=== PATIENT | female | born 1975 | race Two or more races ===

== ENCOUNTER 2017-07-06 09:15 | Emergency (ER) | payer MEDICAID ==
--- NOTE | 2017-07-06 09:30 | ED Physician Chart ---
ED Chief Complaint/HPI - Patient Information Date Seen:: 07/06/17 Time Seen:: 09:30 Chief Complaint:: ASTHMA ATTACK History of Present Illness:: THIS 42 YEAR OLD FEMALE HAS HAD ASTHMA SINCE SHE CAN REMEMBER. SHE HAS HAD MULTIPLE PRIOR HOSPITALATIONS BUT HAS NEVER NEEDED INTUBATION. SHE HAD RUN OUT OF HER AZH-ALBUTEROL LAST EVENING. SHE RATES THE SEVERITY OF HER DIFFICULTY BREATHING 5/10. SHE IS POSITIVE FOR A MILD COUGH. SHE HAD NO FEVER OR CHILLS. NO CHEST PAIN. POSITIVE FOR WHEEZING. Allergies:: Allergies Allergy/AdvReac Type Severity Reaction Status Date / Time No Known Allergies Allergy Verified 07/06/17 09:22 Vitals:: Vital Signs - 8 hr 07/06/17 09:23 Temp 98.4 F HR 96 RR 16 BP 109/70 O2 Sat % 97 ED Review of Systems - Review of Systems General/Constitutional: No fever, No chills, No weight loss, No diaphoresis Skin: Skin lesions Head: No headache Eyes: No loss of vision, No diplopia ENT: No earache, No sore throat Neck: No neck pain, No swelling, No thyromegaly, No stiffness Cardio Vascular: No chest pain, No PND, No orthopnea, No edema Pulmonary: SOB, Cough, No cough, No sputum, Wheezing GI: No nausea, No vomiting, No pain, No melena, No constipation G/U: Dysuria Musculoskeletal: Bone or joint pain Endocrine: No polyuria, No polydipsia Psychiatric: No depression, No anxiety, No suicidal ideation Hematopoietic: No bruising Neurological: No syncope, No focal symptoms, No weakness, No paresthesia, No headache, No seizure, No dizziness, No confusion, No vertigo ED Past Medical History - Past Medical History Past Medical History: Other (ASTHMA) Family History: None Social History: Non Smoker, No Drug Use, Single Family Medical History - Family Member Mother Hx Family Cancer: No Hx Family Stroke: No Hx Family Diabetes: No Hx Family Seizures: No Hx Family AIDS: No Hx Family HIV: No ED Physical Exam - Physical Examination General/Constitutional: Awake, Well-developed, well-nourished, Alert, GCS 15, Non-toxic appearing Other Gen/Cons comments:: MILD RESP DISTRESS Head: Atraumatic Eyes: Lids, conjuctiva normal, PERRL, EOMI Skin: No rash, No skin lesions, No ecchymosis, Well hydrated, No lymphadenopathy ENMT: External ears, nose nl, Nasal exam nl, Lips, teeth, gums nl, Oropharynx nl , Tonsils nl Neck: Nontender, Full ROM w/o pain, No JVD, No nuchal rigidity, No bruit, No mass, No stridor Respiratory: Nl effort/Exclusion Other Respiratory comments:: PROLONGED EXPIRATORY PHASE. DIFUSE WHEEZING. NO RALES Cardio Vascular: RRR, No murmur, gallop, rubs, NL S1 S2 Other Cardio Vascular comments:: GOOD PULSES ALL 4 EXTREMITIES. GI: No tenderness/rebounding/guarding, No organomegaly, No hernia, Normal BS's, Nondistended, No mass/bruits, No McBurney tenderness Other GI comments:: RECTAL EXAM DEFERRED AT MY DISCRETION. : No CVA tenderness Extremities: No tenderness or effusion, Full ROM, normal strength in all extremities, No edema, Normal digits & nails Neuro/Psych: Alert/oriented, DTR's symmetric, Normal sensory exam, Normal motor strength, Judgement/insight normal, Mood normal, Normal gait, No focal deficits Misc: Normal back, No paraspinal tenderness ED Labs/Radiology/EKG Results - Lab Results Results: NO LAB OR RADIOLOGY STUDIES INDICATED. ED Assessment - Assessment General Assessment: CASE SUMMARY:THIS 42 YEAR OLD FEMALE HAS LONG HISTORY OF ASTHMA AND RAN OUT OF HER ALBUTEROL MDI LAST EFIR VEN. NEEDS NEW RX FOR MDI. PT RECEIVED ALBUTEROL /ASTROVENT NEBULIZED ALSO DISCHARGED WITH RX F PREDNISONE, 10 MG TO BE TAKEN A 5 DAY TAPERED COURSE.AFTER TREATMENT LUNGS WERE COMPLETELY CLEAR. D/C'D HOME WITH RX'S FOR ALBUTEROL AND PREDNISONE. MDM, DDX ACUTE RESPIRATORY DISTRESS: NOT PULMONARY EDEMA BASED ON PATIENT HISTORY AND PHYSICAL EXAM. NOT PNEUMOTHORAX BASED ON PATIENT'S HISTORY AND EXAM. NOT PULMONARY EMBOLISM BASED ON WELLS CRITERIA. NOT COPD BASED ON HISTORY AND EXAM. ED Septic Shock - . Is Septic Shock (SBP<90, OR Lactate>4 mmol\L) present?: No - <6hrs of presentation: Vital Signs: Vital Signs - 8 hr 07/06/17 09:23 Temp 98.4 F HR 96 RR 16 BP 109/70 O2 Sat % 97 ED Reassessment (Disposition) - Reassessment Reassessment Condition:: Improved - Diagnosis Diagnosis:: ACUTE ASTHMA EXACERBATION, COMPLETELY RESOLVED. - Patient Disposition Discharge/Transfer:: Home ED Discharge Plan - Patient Disposition Admit/Discharge/Transfer: PT DISCHARGED HOME Condition at Disposition: Improved Instructions: Asthma, Adult, [id number]
[2017-07-06] MEDS ORDERED: Albuterol/Ipratropium Neb 3 ML AERS HHN ONE ×2 (09:45→09:50)
== END 2017-07-06 10:08 | disposition home or self-care (01) ==
LOC: ER 09:15
DX: J45.901 Unspecified asthma with (acute) exacerbation (principal)
CPT/HCPCS: 94640; Z7502

== ENCOUNTER 2017-08-11 19:18 | Emergency (ER) | payer MEDICAID ==
--- NOTE | 2017-08-11 19:42 | ED Physician Chart ---
ED Chief Complaint/HPI - Patient Information Date Seen:: 08/11/17 Time Seen:: 19:30 Chief Complaint:: Pt is here to request a refill for albuterol inhaler. History of Present Illness:: Pt has h/o asthma since childhood. Pt has been out of her albuterol inhaler and requests to have a refill in case she needs it. Pt now breathes comfortably without dyspnea or audible wheeze. No fever. Allergies:: Allergies Allergy/AdvReac Type Severity Reaction Status Date / Time No Known Allergies Allergy Verified 08/11/17 19:31 Vitals:: see Nurse Note. Historian:: Patient Family MD/PCP:: Unknown LMP:: 07/16/2017 Review:: Nurse's Note Reviewed ED Review of Systems - Review of Systems General/Constitutional: No fever, No weight loss, No weakness, No edema, No loss of appetite Skin: No rash, No bruising Head: No headache, No light-headedness Eyes: No loss of vision, No pain, No diplopia ENT: No earache, No nasal drainage, No sore throat Neck: No neck pain, No swelling, No stiffness Cardio Vascular: No chest pain Pulmonary: No SOB, No cough, No wheezing GI: No nausea, No vomiting, No diarrhea, No pain G/U: No dysuria, No frequency, No hematuria [place] Winder: No vaginal discharge, No abnormal vaginal bleed Musculoskeletal: No bone or joint pain Psychiatric: No prior psych history Hematopoietic: No bruising, No lymphadenopathy Allergic/Immuno: No angioedema Neurological: No syncope, No focal symptoms, No weakness, No headache, No dizziness, No confusion ED Past Medical History - Past Medical History Past Medical History: Asthma/COPD Family History: Cancer (in parents.) Social History: Non Smoker, No Alcohol, No Drug Use, Single, Employed, Other ( lives with her sister.) 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 Surgical History: Appendectomy (in .), other (Tubal ligation in , splenectomy in ) Psychiatricy History: None Medication: Reviewed Family Medical History - Family Member Mother Hx Family Cancer: No Hx Family Stroke: No Hx Family Diabetes: No Hx Family Seizures: No Hx Family AIDS: No Hx Family HIV: No ED Physical Exam - Physical Examination General/Constitutional: Awake, Well-developed, well-nourished, Alert, No distress, Non-toxic appearing, Ambulatory Other Gen/Cons comments:: Breathes comfortably, speaks clearly, and ambulates without difficulty. Head: Atraumatic Eyes: Lids, conjuctiva normal, PERRL, EOMI Skin: Nl inspection, No ecchymosis, Well hydrated, No lymphadenopathy ENMT: External ears, nose nl, Nasal exam nl, Oropharynx nl, Tonsils nl Neck: Nontender, Full ROM w/o pain, No JVD, No nuchal rigidity, No mass, No stridor Respiratory: Nl effort/Exclusion Other Respiratory comments:: Minimal diffuse exp wheeze that improved after a few intentional coughs. No rales. Cardio Vascular: RRR, No murmur, gallop, rubs GI: No tenderness/rebounding/guarding, No organomegaly, Normal BS's, Nondistended Extremities: No tenderness or effusion, Full ROM, No edema Neuro/Psych: Alert/oriented (oriented x 3.), Judgement/insight normal, Mood normal, Normal gait, No focal deficits ED Septic Shock - . Is Septic Shock (SBP<90, OR Lactate>4 mmol\L) present?: No ED Reassessment (Disposition) - Reassessment Reassessment:: 195 HHN was offered, but pt declined as she feels much better. Pt just want prescription for Combivent inhaler after a lengthy discussion. Pt appears to be comfortable and is not in respiratory distress. She speaks in full sentences without pause. Pt requests to go home now and does not want further observation/ management in hospital. Aftercare instructions have been given. Reassessment Condition:: Improved - Diagnosis Diagnosis:: H/O asthma since childhood by hx. Stable. - Aftercare/Follow up Instructions Aftercare/Follow-Up Instructions:: Refer to Discharge Instructions Notes:: Continue present care. Avoid exposure to cold air. F/U with Dr. Light or PCP of pt's choice in one day for recheck. Return to ER immediately if condition worsens or if any further questions/problems. Medication Prescribed:: Combivent inhaler 2 puffs q6h prn dyspnea or wheeze. D-one canister R-0 - Patient Disposition Discharge/Transfer:: Home Time:: 20:00 Condition at Disposition:: Stable, Improved
== END 2017-08-11 20:18 | disposition home or self-care (01) ==
LOC: ER 19:18
DX: J45.909 Unspecified asthma, uncomplicated (principal); J44.9 Chronic obstructive pulmonary disease, unspecified; Z76.0 Encounter for issue of repeat prescription; Z90.49 Acquired absence of other specified parts of digestive tract
CPT/HCPCS: Z7502

== ENCOUNTER 2017-09-05 01:46 | Emergency (ER) | payer MEDICAID ==
[2017-09-05] MEDS ORDERED: Albuterol/Ipratropium Neb 3 ML AERS HHN ONE ×2 (01:50→01:55)
--- NOTE | 2017-09-05 02:23 | ED Physician Chart ---
ED Chief Complaint/HPI - Patient Information Date Seen:: 09/05/17 Time Seen:: 01:45 Chief Complaint:: Wheezing History of Present Illness:: onset x 3 hours of intermittent wheezing and dyspnea; pt ran out of her inhaler medication one day ago; pt denies trauma, H/As, LOC, ALOC, AMS, H/As, congestion , E/As, S/T, neck pain, C/P, cough, Abd. 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 Allergies:: Allergies Allergy/AdvReac Type Severity Reaction Status Date / Time No Known Allergies Allergy Verified 09/05/17 01:49 Vitals:: Vital Signs - 8 hr 09/05/17 09/05/17 09/05/17 01:46 01:54 02:16 Temp 98.2 F 98 F HR 85 97 82 RR 18 18 17 BP 107/72 O2 Sat % 97 96 96 Historian:: Patient Review:: Nurse's Note Reviewed ED Review of Systems - Review of Systems General/Constitutional: No fever, No chills, No weight loss, No weakness, No diaphoresis, No edema, No loss of appetite Skin: No skin lesions, No rash, No bruising Head: No headache, No light-headedness Eyes: No loss of vision, No pain, No diplopia ENT: No earache, No nasal drainage, No sore throat, No tinnitus Neck: No neck pain, No swelling, No thyromegaly, No stiffness, No mass noted Cardio Vascular: No chest pain, No palpitations, No PND, No orthopnea, No edema Pulmonary: SOB, No cough, No sputum, Wheezing GI: No nausea, No vomiting, No diarrhea, No pain, No melena, No hematochezia, No constipation, No hematemesis G/U: No dysuria, No frequency, No hematuria, No nacturia 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, No abnormal vaginal bleed, No contraction Musculoskeletal: No bone or joint pain, No back pain, No muscle pain Endocrine: No polyuria, No polydipsia Psychiatric: No prior psych history, No depression, No anxiety, No suicidal ideation, No homicidal ideation, No auditory hallucination, No visual hallucination Hematopoietic: No bruising, No lymphadenopathy Allergic/Immuno: No urticaria, No angioedema Neurological: No syncope, No focal symptoms, No weakness, No paresthesia, No headache, No seizure, No dizziness, No confusion, No vertigo ED Past Medical History - Past Medical History Obtainable: Yes Past Medical History: Asthma/COPD Family History: HTN Social History: Non Smoker, No Alcohol, No Drug Use, Single Surgical History: None Psychiatricy History: None Medication: Reviewed Family Medical History - Family Member Mother History Unknown: Yes Ethnicity: Non- Living Status: Hx Family Cancer: No Hx Family Stroke: No Hx Family Diabetes: No Hx Family Seizures: No Hx Family AIDS: No Hx Family HIV: No ED Physical Exam - Physical Examination General/Constitutional: Awake, Well-developed, well-nourished, Alert, No distress, GCS 15, Non-toxic appearing, Ambulatory Head: Atraumatic Eyes: Lids, conjuctiva normal, PERRL, EOMI Skin: Nl inspection, No rash, No skin lesions, No ecchymosis, Well hydrated, No lymphadenopathy ENMT: External ears, nose nl, TM canals nl, Nasal exam nl, Lips, teeth, gums nl , Oropharynx nl, Tonsils nl Neck: Nontender, Full ROM w/o pain, No JVD, No nuchal rigidity, No bruit, No mass, No stridor Other Neck comments:: supple; no meningeal signs; no cervical tenderness; no bruits Respiratory: Nl effort/Exclusion Other Respiratory comments:: Lungs: + Expiratory Wheezes Cardio Vascular: RRR, No murmur, gallop, rubs, NL S1 S2, Carotid/Femoral/Distal pulses equal bilaterally GI: No tenderness/rebounding/guarding, No organomegaly, No hernia, Normal BS's, Nondistended, No mass/bruits, No McBurney tenderness Other GI comments:: no pulsatile masses : No CVA tenderness Extremities: No tenderness or effusion, Full ROM, normal strength in all extremities, No edema, Normal digits & nails Neuro/Psych: Alert/oriented, DTR's symmetric, Normal sensory exam, Normal motor strength, Judgement/insight normal, Mood normal, Normal gait, No focal deficits Other Neuro/Psych comments:: no focal signs Misc: Normal back, No paraspinal tenderness ED Septic Shock - . Is Septic Shock (SBP<90, OR Lactate>4 mmol\L) present?: No - <6hrs of presentation: Vital Signs: Vital Signs - 8 hr 09/05/17 09/05/17 09/05/17 01:46 01:54 02:16 Temp 98.2 F 98 F HR 85 97 82 RR 18 18 17 BP 107/72 O2 Sat % 97 96 96 Assessment of Lungs: Lung CTA bilateral, No Rhonchi, No Rales, No Wheezing, No Stridor ED Reassessment (Disposition) - Reassessment Reassessment:: Pt has no dyspnea; PE: Pt in no Respiratory Distress; Lungs: CTA with good Breath Sounds; Pulse Ox: 100% on RA; pt tolerated po fluids well in ER; pt is asymptomatic upon discharge Reassessment Condition:: Improved - Diagnosis Diagnosis:: Asthma; Medication Refill/Renewell; Dyspnea; Wheezing; Asthma - Aftercare/Follow up Instructions Aftercare/Follow-Up Instructions:: Counseled pt regarding lab results/diagnosis & need follow up, Refer to Discharge Instructions, Counseled pt & family regarding lab results/diagnosis & need follow up Medication Prescribed:: Rx: Albuterol Inhaler: one puff qid prn wheezing ( 2 Bottles); take medications as prescribed - Patient Disposition Discharge/Transfer:: Home Condition at Disposition:: Stable, Improved (RTER prn if existing s/s reoccur and/or get worse and/or any other new s/s occur; ACIs given for all above Dx; Refer to Biomass Technician/Curing Press Maintainer YUAN; F/U with PMD in one day or prn; RTER prn if concerned) ED Discharge Plan - Patient Disposition Prescriptions: Albuterol Sulfate [Proventil Hfa*] 0.09 mg IH QID PRN #2 yared PRN Reason: Wheezing Humidifier [Cool Mist Humidifier] 1 each MC QID PRN #1 each PRN Reason: Wheezing Instructions: Asthma, Adult, Shortness of Breath, [id number]
== END 2017-09-05 02:15 | disposition home or self-care (01) ==
LOC: ER 01:46
DX: J45.909 Unspecified asthma, uncomplicated (principal); J44.9 Chronic obstructive pulmonary disease, unspecified
CPT/HCPCS: 94640; Z7502

== ENCOUNTER 2017-11-12 22:35 | Emergency (ER) | payer MEDICAID ==
[2017-11-12] MEDS ORDERED: Albuterol/Ipratropium Neb 3 ML AERS HHN ONE ×2 (22:49→22:50)
--- NOTE | 2017-11-12 23:09 | ED Physician Chart ---
ED Chief Complaint/HPI - Patient Information Date Seen:: 11/12/17 Time Seen:: 23:09 Chief Complaint:: Wheezing History of Present Illness:: 42 yo female walked to ER due to wheezing. Patient has history of asthma routinely using albuterol inhaler HFA. Patient recently ran out of the inhaler and her asthma became worse with increased wheezing for 3 days. Patient had shortness of breath. Allergies:: Allergies Allergy/AdvReac Type Severity Reaction Status Date / Time No Known Allergies Allergy Verified 11/12/17 22:39 Vitals:: Vital Signs - 8 hr 11/12/17 22:35 Temp 98.1 F HR 73 RR 20 O2 Sat % 99 ED Review of Systems - Review of Systems General/Constitutional: No fever, No chills Skin: No skin lesions Head: No headache Eyes: No pain ENT: No nasal drainage Neck: No neck pain Cardio Vascular: No chest pain Pulmonary: SOB, Wheezing GI: No nausea, No vomiting Musculoskeletal: No bone or joint pain Neurological: No focal symptoms ED Past Medical History - Past Medical History Past Medical History: Asthma/COPD Social History: Non Smoker, No Alcohol, No Drug Use Family Medical History - Family Member Mother History Unknown: Yes Ethnicity: Non- Living Status: Hx Family Cancer: No Hx Family Stroke: No Hx Family Diabetes: No Hx Family Seizures: No Hx Family AIDS: No Hx Family HIV: No ED Physical Exam - Physical Examination General/Constitutional: Awake, Alert Head: Atraumatic Eyes: PERRL Skin: No skin lesions ENMT: Nasal exam nl Neck: No nuchal rigidity Other Respiratory comments:: Wheezing bilateral lungs Cardio Vascular: RRR, No murmur, gallop, rubs, NL S1 S2 GI: No tenderness/rebounding/guarding Extremities: normal strength in all extremities Neuro/Psych: No focal deficits ED Assessment - Assessment General Assessment: Asthma exacerbation Assessment/Comments:: Duo Neb STAT Patient's symptom improved significantly after nebulizing treatment at ER D/c home Breo Ellipta 200mcg/25mcg, one puff inhaled, qd, one inhaler Duo Neb 0.5mg/2.5mg/3mL, 3mL NEB, q20min x 3 doses, then prn up to 3h for asthma exacerbation, 30 vials ProAir HFA 2 puffs inhaled q4-6h prn for wheezing, one inhaler F/u PCP within one week ED Septic Shock - . Is Septic Shock (SBP<90, OR Lactate>4 mmol\L) present?: No - <6hrs of presentation: Vital Signs: Vital Signs - 8 hr 11/12/17 22:35 Temp 98.1 F HR 73 RR 20 O2 Sat % 99 ED Reassessment (Disposition) - Reassessment Reassessment Condition:: Improved - Patient Disposition Discharge/Transfer:: Home
== END 2017-11-13 00:30 | disposition home or self-care (01) ==
LOC: ER 22:35
DX: J45.901 Unspecified asthma with (acute) exacerbation (principal)
CPT/HCPCS: 94640; Z7502